=== PATIENT | female | born 1965 | race Caucasian/White ===

== ENCOUNTER 2016-11-23 09:02 | Emergency (ER) | payer MEDICAID ==
[~2016-11-23] VITALS: Ht 160 cm; Wt 102.3 kg
[2016-11-23 09:31] VITALS: BP 129/84
== END 2016-11-23 10:13 | disposition home or self-care (01) ==
LOC: EMS 09:03
DX: B02.9 Zoster without complications (principal)
CPT/HCPCS: 99283

== ENCOUNTER 2017-05-24 07:57 | Emergency (ER) | payer MEDICAID ==
[~2017-05-24] VITALS: Ht 160 cm; Wt 97.7 kg
[2017-05-24] MEDS ORDERED: HYDROCODONE/ACETAMINOPHEN 5-325 MG TABLET PO ONE (08:45)
[2017-05-24 10:39] VITALS: BP 149/95
== END 2017-05-24 10:55 | disposition home or self-care (01) ==
LOC: EMS 07:58
DX: S20.212A Contusion of left front wall of thorax, initial encounter (principal); W01.0XXA Fall on same level from slipping, tripping and stumbling without subsequent striking against object, initial encounter; Y93.89 Activity, other specified; Y92.89 Other specified places as the place of occurrence of the external cause; Y99.8 Other external cause status
CPT/HCPCS: 71101; 93005; 99284

== ENCOUNTER 2017-07-10 08:19 | Emergency (ER) | payer MEDICAID ==
[~2017-07-10] VITALS: Ht 160 cm; Wt 100.0 kg
[2017-07-10 09:45] LABS: APPEARANCE,URINE CLOUDY (CLEAR); GLUCOSE, URINE (UA) NEGATIVE (NEGATIVE); KETONES,URINE TRACE mg/dL (NEGATIVE); LEUKOCYTE ESTERASE ,URINE SMALL (NEGATIVE); OCCULT BLOOD,URINE NEGATIVE (NEGATIVE); PH,URINE 5.5 (5.0-8.0); PROTEIN,URINE NEGATIVE (NEGATIVE)
[2017-07-10 09:47] LABS: ADD UA MICROSCOPIC YES
[2017-07-10 09:49] LABS: RBC,URINE None Seen /HPF (0-2); SQUAMOUS EPITHELIAL CELL,UR Many /LPF (None Seen)
[2017-07-10] MEDS ORDERED: METHOCARBAMOL 500 MG TABLET PO ONE (10:00)
[2017-07-10] MEDS ORDERED: KETOROLAC TROMETHAMINE 60 MG/2 ML VIAL IM ONE (10:00)
[2017-07-10 10:42] VITALS: BP 138/75
== END 2017-07-10 11:01 | disposition home or self-care (01) ==
LOC: EMS 08:20
DX: S39.012A Strain of muscle, fascia and tendon of lower back, initial encounter (principal); N39.0 Urinary tract infection, site not specified; R03.0 Elevated blood-pressure reading, without diagnosis of hypertension; X50.0XXA Overexertion from strenuous movement or load, initial encounter; Y93.89 Activity, other specified; Y92.89 Other specified places as the place of occurrence of the external cause; Y99.8 Other external cause status
CPT/HCPCS: 81001; 96372; 99283; J1885

== ENCOUNTER 2017-10-02 08:52 | Emergency (ER) | payer MEDICAID ==
[~2017-10-02] VITALS: Ht 160 cm; Wt 97.7 kg
[2017-10-02 09:29] LABS: GLUCOSE, URINE (UA) NEGATIVE (NEGATIVE); KETONES,URINE NEGATIVE (NEGATIVE); LEUKOCYTE ESTERASE ,URINE TRACE (NEGATIVE); OCCULT BLOOD,URINE NEGATIVE (NEGATIVE); PROTEIN,URINE NEGATIVE (NEGATIVE)
[2017-10-02 09:46] LABS: ADD UA MICROSCOPIC YES; APPEARANCE,URINE SLIGHTLY CLOUDY (CLEAR); RBC,URINE None Seen /HPF (0-2); WBC,URINE 0-2 /HPF (0-5)
[2017-10-02 09:47] LABS: SQUAMOUS EPITHELIAL CELL,UR Many /LPF (None Seen)
[2017-10-02] MEDS ORDERED: ONDANSETRON HCL 4 MG TABLET PO ONE (11:00)
[2017-10-02 11:23] LABS: BASOPHILS % (AUTO) 0.4 % (0.0-2.0); HEMATOCRIT 43.6 % (36-46); HEMOGLOBIN 14.9 g/dL (12.0-16.0); LYMPHOCYTES # (AUTO) 4.3 K/uL (1.0-4.8); LYMPHOCYTES % (AUTO) 38.7 % (22.0-44.0); MEAN CORPUSCULAR HEMOGLOBIN 31.1 pg (26.0-34.0); MEAN CORPUSCULAR HGB CONC 34.1 G/dL (31.0-37.0); MEAN CORPUSCULAR VOLUME 91 fL (80-100); MONOCYTES # (AUTO) 0.7 K/uL (0.1-1.0); MONOCYTES % (AUTO) 6.1 % (2.0-9.0); NEUTROPHILS % (AUTO) 53.8 % (40.0-70.0); PLATELET COUNT (AUTO) 204 K/uL (150-450); RED BLOOD CELL COUNT(AUTO) 4.79 MIL/uL (4.00-5.20); RED CELL DISTRIBUTION WIDTH 13.3 % (11.5-14.5); WHITE BLOOD COUNT (AUTO) 11.2 K/uL (4.5-11.0)
[2017-10-02 11:31] LABS: ANION GAP 7 mmol/L (8-16); CALCIUM, TOTAL 9.3 mg/dL (8.8-10.5); CARBON DIOXIDE 30 mmol/L (22-29); CHLORIDE 101 mmol/L (98-107); CREATININE 0.71 mg/dL (0.60-1.30); GLOMERULAR FILTR. RATE CALC > 60 mL/min (>60); POTASSIUM 3.9 mmol/L (3.5-5.1); SODIUM SERUM 138 mmol/L (136-145); UREA NITROGEN, BLOOD 14 mg/dL (7-18)
[2017-10-02 11:36] LABS: ALANINE AMINOTRANSFERASE 86 U/L (12-78); ALBUMIN 3.5 g/dL (3.4-5.0); ASPARTATE AMINOTRANSFERASE 54 U/L (15-37); BILIRUBIN,TOTAL 0.7 mg/dL (0.1-1.0); TOTAL PROTEIN, SERUM 7.6 g/dL (6.4-8.2)
[2017-10-02 13:25] VITALS: BP 128/82
== END 2017-10-02 14:12 | disposition home or self-care (01) ==
LOC: EMS 08:54
DX: R73.9 Hyperglycemia, unspecified (principal); R11.2 Nausea with vomiting, unspecified
CPT/HCPCS: 36415; 80053; 81001; 85025; 99284; Q0162

== ENCOUNTER 2018-05-02 15:18 | Emergency (ER) | payer MEDICAID ==
[~2018-05-02] VITALS: Ht 160 cm; Wt 97.7 kg
[2018-05-02 15:34] LABS: GLUCOSE,POINT OF CARE 283 MG/DL (70-110)
[2018-05-02 18:13] LABS: BASOPHILS % (AUTO) 0.4 % (0.0-2.0); EOSINOPHILS % (AUTO) 1.7 % (1.0-6.0); HEMATOCRIT 44.9 % (36-46); LYMPHOCYTES % (AUTO) 39.4 % (22.0-44.0); MEAN CORPUSCULAR HEMOGLOBIN 29.9 pg (26.0-34.0); MEAN CORPUSCULAR HGB CONC 33.3 G/dL (31.0-37.0); MEAN CORPUSCULAR VOLUME 90 fL (80-100); MONOCYTES # (AUTO) 0.7 K/uL (0.1-1.0); MONOCYTES % (AUTO) 6.5 % (2.0-9.0); NEUTROPHILS # (AUTO) 5.3 K/uL (1.8-7.7); PLATELET COUNT (AUTO) 227 K/uL (150-450); RED BLOOD CELL COUNT(AUTO) 5.01 MIL/uL (4.00-5.20); RED CELL DISTRIBUTION WIDTH 13.3 % (11.5-14.5)
[2018-05-02] MEDS ORDERED: MECLIZINE HCL 25 MG TABLET PO ONE (18:15)
[2018-05-02 18:26] LABS: ANION GAP 5 mmol/L (8-16); CALCIUM, TOTAL 9.3 mg/dL (8.8-10.5); CARBON DIOXIDE 31 mmol/L (22-29); CHLORIDE 100 mmol/L (98-107); CREATININE 0.69 mg/dL (0.60-1.30); GLOMERULAR FILTR. RATE CALC > 60 mL/min (>60); GLUCOSE,RANDOM 287 mg/dL (70-110); POTASSIUM 3.9 mmol/L (3.5-5.1); SODIUM SERUM 136 mmol/L (136-145); UREA NITROGEN, BLOOD 10 mg/dL (7-18)
[2018-05-02 18:49] LABS: ALANINE AMINOTRANSFERASE 54 U/L (12-78); ALBUMIN 3.3 g/dL (3.4-5.0); ALKALINE PHOSPHATASE 97 U/L (46-116); ASPARTATE AMINOTRANSFERASE 24 U/L (15-37); BILIRUBIN,TOTAL 0.4 mg/dL (0.1-1.0); CREATINE KINASE, TOTAL 122 U/L (26-192); TOTAL PROTEIN, SERUM 7.1 g/dL (6.4-8.2)
[2018-05-02 18:50] LABS: CREATINE KINASE MB < 0.5 ng/mL (0-5)
[2018-05-02 19:53] LABS: APPEARANCE,URINE CLEAR (CLEAR); BILIRUBIN,URINE NEGATIVE (NEGATIVE); GLUCOSE, URINE (UA) >=1000 mg/dL (NEGATIVE); KETONES,URINE NEGATIVE (NEGATIVE); LEUKOCYTE ESTERASE ,URINE NEGATIVE (NEGATIVE); NITRATE,URINE NEGATIVE (NEGATIVE); OCCULT BLOOD,URINE NEGATIVE (NEGATIVE); PROTEIN,URINE NEGATIVE (NEGATIVE)
[2018-05-02] MEDS ORDERED: IBUPROFEN 600 MG TABLET PO ONE (20:00)
[2018-05-02 20:21] LABS: BACTERIA,URINE Few /HPF (None Seen); RBC,URINE None Seen /HPF (0-2); SQUAMOUS EPITHELIAL CELL,UR Few /LPF (None Seen)
[2018-05-02 20:22] LABS: WBC,URINE 0-2 /HPF (0-5)
[2018-05-02 21:13] VITALS: BP 133/74
== END 2018-05-02 21:14 | disposition home or self-care (01) ==
LOC: EMS 15:19
DX: R42 Dizziness and giddiness (principal); R51 Headache; R11.0 Nausea
CPT/HCPCS: 93005; 99285

== ENCOUNTER 2019-12-23 12:38 | Emergency (ER) | payer MEDICAID ==
[~2019-12-23] VITALS: Ht 160 cm; Wt 90.5 kg
[2019-12-23 13:07] VITALS: BP 147/89
[2019-12-23] MEDS ORDERED: IBUPROFEN 400 MG TABLET PO ONE (15:30)
== END 2019-12-23 17:04 | disposition home or self-care (01) ==
LOC: EMS 12:39
DX: S92.521A Displaced fracture of middle phalanx of right lesser toe(s), initial encounter for closed fracture (principal); S93.492A Sprain of other ligament of left ankle, initial encounter; Z98.890 Other specified postprocedural states; W22.8XXA Striking against or struck by other objects, initial encounter; Y93.89 Activity, other specified; Y92.89 Other specified places as the place of occurrence of the external cause; Y99.8 Other external cause status

== ENCOUNTER 2021-08-26 20:38 | Emergency (ER) | payer MEDICAID ==
[~2021-08-26] VITALS: Ht 160 cm; Wt 88.6 kg
[2021-08-26] MEDS ORDERED: KETOROLAC TROMETHAMINE 30 MG/ML VIAL IM ONE (22:30)
[2021-08-26 23:20] VITALS: BP 145/88
== END 2021-08-26 23:49 | disposition home or self-care (01) ==
LOC: EMS 20:41
DX: S52.122A Displaced fracture of head of left radius, initial encounter for closed fracture (principal); W10.9XXA Fall (on) (from) unspecified stairs and steps, initial encounter; Y93.89 Activity, other specified; Y92.89 Other specified places as the place of occurrence of the external cause; Y99.8 Other external cause status
CPT/HCPCS: 29125; 73080; 73090; 73110; 96372; 99284; J1885

== ENCOUNTER 2024-12-08 15:37 | Emergency (ER) | payer MEDICAID ==
[~2024-12-08] VITALS: Ht 162.6 cm; Wt 75.0 kg
[2024-12-08 15:43] VITALS: TEMP 98
[2024-12-08] MEDS ORDERED: CYCL-448 PO (23:13)
[2024-12-09 00:08] VITALS: BP 151/77; PULSE 68; RESP 18; O2SAT 98
[2024-12-10] MEDS ORDERED: LIDO700A15 TP (18:51)
[2024-12-10] MEDS ORDERED: ACET-3385 PO (18:51)
[2024-12-10] MEDS ORDERED: IBUP-1492 PO (18:51)
== END 2024-12-09 00:10 | disposition home or self-care (01) ==
LOC: EMS 15:37
DX: S13.4XXA Sprain of ligaments of cervical spine, initial encounter (principal); V89.2XXA Person injured in unspecified motor-vehicle accident, traffic, initial encounter; Y93.89 Activity, other specified; Y92.410 Unspecified street and highway as the place of occurrence of the external cause; Y99.8 Other external cause status
CPT/HCPCS: 71045; 72040; 72070; 99284

== ENCOUNTER 2024-12-10 17:45 | Emergency (ER) | payer MEDICAID ==
[~2024-12-10] VITALS: Ht 160 cm; Wt 85.0 kg
[~2024-12-10 17:45] MED LIST: CYCL-448 PO
[2024-12-10 17:49] VITALS: BP 137/73; PULSE 84; RESP 18; TEMP 98.2; O2SAT 99
[2024-12-10] MEDS: ACETAMINOPHEN 500 MG TABLET PO ONE (18:42)
[2024-12-10] MEDS: LIDOCAINE 5% TRANSDERMAL PATCH TD ONE (18:43)
[2024-12-10] MEDS: KETOROLAC TROMETHAMINE 30 MG/ML VIAL IM ONE (18:43)
[2024-12-10] MEDS ORDERED: ACET-3385 PO (18:51)
[2024-12-10] MEDS ORDERED: LIDO700A15 TP (18:51)
[2024-12-10] MEDS ORDERED: IBUP-1492 PO (18:51)
== END 2024-12-10 18:58 | disposition home or self-care (01) ==
LOC: EMS 17:45
DX: S13.4XXA Sprain of ligaments of cervical spine, initial encounter (principal); Z98.890 Other specified postprocedural states; V89.2XXA Person injured in unspecified motor-vehicle accident, traffic, initial encounter; Y93.89 Activity, other specified; Y92.89 Other specified places as the place of occurrence of the external cause; Y99.8 Other external cause status
CPT/HCPCS: 99283; 96372; J1885